=== PATIENT | male | born 2000 | race Caucasian/White ===

== ENCOUNTER → 2021-12-22 09:56 | Outpatient (BNVA) | payer BC, SELFPAY | PROVIDERS: Family Provider Nurse Practitioner Family; PCP Nurse Practitioner Family; Visit Provider Nurse Practitioner Family | DX: F32.A Depression, unspecified (principal); F41.9 Anxiety disorder, unspecified; L65.9 Nonscarring hair loss, unspecified | CPT/HCPCS: 80053; 84443; 85025 ==